=== PATIENT | male | born 1985 | race Two or more races ===

== ENCOUNTER 2018-04-14 18:01 | Emergency (ER) | payer SELFPAY ==
[~2018-04-14] VITALS: Ht 180.3 cm; Wt 77.1 kg
[2018-04-14] MEDS ORDERED: LORAZEPAM 1 MG TABLET PO ONE (18:30)
[2018-04-14] MEDS ORDERED: LORAZEPAM 1 MG TABLET ONE (18:49)
--- NOTE | 2018-04-14 18:51 | NUR ---
MEDICATIONS GIVEN PER MD ORDER
[2018-04-14 20:10] VITALS: BP 147/95
== END 2018-04-14 20:10 | disposition home or self-care (01) ==
LOC: ER 18:05
DX: F41.1 Generalized anxiety disorder (principal); Z88.8 Allergy status to other drugs, medicaments and biological substances; F17.210 Nicotine dependence, cigarettes, uncomplicated
CPT/HCPCS: A4606; Z7610

== ENCOUNTER 2018-05-06 01:12 | Emergency (ER) | payer SELFPAY ==
[~2018-05-06] VITALS: Ht 180.3 cm; Wt 79.4 kg
[2018-05-06 01:13] VITALS: BP 144/88
[2018-05-06] MEDS ORDERED: LORAZEPAM INJ 2 MG/ML VIAL IM ONE (02:00)
[2018-05-06] MEDS ORDERED: LORAZEPAM INJ 2 MG/ML VIAL ONE (02:08)
== END 2018-05-06 02:37 | disposition home or self-care (01) ==
LOC: ER 01:12
DX: F41.8 Other specified anxiety disorders (principal); F41.0 Panic disorder [episodic paroxysmal anxiety]; Z88.6 Allergy status to analgesic agent; Z98.890 Other specified postprocedural states
CPT/HCPCS: 96372; 99284; A4606; J2060; Z7610

== ENCOUNTER 2018-06-23 02:37 | Emergency (ER) | payer SELFPAY ==
[~2018-06-23] VITALS: Ht 180.3 cm; Wt 74.8 kg
--- NOTE | 2018-06-23 02:40 | NUR ---
PT AMBULATORY TO ER BED 11. BIB SELF C/O CP X 1 HOUR AGO, DENIES SOB. CP RESOLVED AT THIS TIME. PT STATES SEEN HERE IN ER FOR SAME X 2 OVER LAST 2 MONTHS. 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 VSS/RESP EVEN UNLABORED/NAD NOTED/SKIN WARM AND DRY/DENIES N-V-D/AFEBRILE/AOX4. AWAITING MD FRENCH.
--- NOTE | 2018-06-23 02:50 | NUR ---
EMT AT BEDSIDE FOR EKG.
--- NOTE | 2018-06-23 02:55 | NUR ---
AT BEDSIDE FOR EVAL.
[2018-06-23 04:37] VITALS: BP 138/99
== END 2018-06-23 04:38 | disposition home or self-care (01) ==
LOC: ER 02:37
DX: R07.89 Other chest pain (principal); F41.0 Panic disorder [episodic paroxysmal anxiety]; Z98.890 Other specified postprocedural states; Z88.6 Allergy status to analgesic agent
CPT/HCPCS: 71046; 93005; 99284; A4606; Z7610

== ENCOUNTER 2019-01-17 14:59 | Emergency (ER) | payer SELFPAY ==
[~2019-01-17] VITALS: Ht 180.3 cm; Wt 77.1 kg
[2019-01-17] MEDS ORDERED: HYDROCODONE/APAP 5/325MG 1 EACH TABLET PO ONE (15:30)
[2019-01-17] MEDS ORDERED: HYDROCODONE/APAP 5/325MG 1 EACH TABLET ONE (15:41)
--- NOTE | 2019-01-17 15:43 | NUR ---
P T REC'D TO ER C/O PAIN SWELLING LEFT ANKLE 8/10 PAIN POS GIVEN AWAITING EVALUATION BY ER PROVIDER.
--- NOTE | 2019-01-17 15:44 | NUR ---
PT GIVEN NORCO 5/325 MG PO NOW PER MD ORDER
--- NOTE | 2019-01-17 16:18 | NUR ---
[facility] CALLED FOR STAT READ
--- NOTE | 2019-01-17 17:07 | NUR ---
CRUTCH DEMO BY PATIENT LEFT LEG BANDAGED PT. VERBALIZED UNDERSTANDING OF AFTERCARE INSTRUCTIONS.Patient discharged to home in stable condition. Written and verbal after care instructions given. Patient verbalizes understanding of instruction.
[2019-01-17 17:09] VITALS: BP 138/75
== END 2019-01-17 17:10 | disposition home or self-care (01) ==
LOC: ER 15:02
DX: S82.832A Other fracture of upper and lower end of left fibula, initial encounter for closed fracture (principal); F41.9 Anxiety disorder, unspecified; Z98.890 Other specified postprocedural states; Z88.6 Allergy status to analgesic agent; W23.0XXA Caught, crushed, jammed, or pinched between moving objects, initial encounter; Y93.89 Activity, other specified; Y92.89 Other specified places as the place of occurrence of the external cause; Y99.8 Other external cause status
CPT/HCPCS: 29515; 73610; 99283; A4606

== ENCOUNTER 2025-07-26 02:37 | Emergency (ER) | payer SELFPAY ==
[~2025-07-26] VITALS: Ht 177.8 cm; Wt 77.1 kg
[2025-07-26] MEDS ORDERED: ACETAMINOPHEN 325 MG TABLET ONE (03:44)
[2025-07-26 03:48] VITALS: BP 135/75; TEMP 98; O2SAT 97
[2025-07-26] MEDS: ACETAMINOPHEN 325 MG TABLET PO ONE (03:49)
== END 2025-07-26 03:48 | disposition home or self-care (01) ==
LOC: ER 02:40
DX: S10.93XA Contusion of unspecified part of neck, initial encounter (principal); R07.0 Pain in throat; R13.10 Dysphagia, unspecified; F41.9 Anxiety disorder, unspecified; Z60.2 Problems related to living alone; Z88.6 Allergy status to analgesic agent; X58.XXXA Exposure to other specified factors, initial encounter; Y93.89 Activity, other specified; Y92.89 Other specified places as the place of occurrence of the external cause; Y99.8 Other external cause status
CPT/HCPCS: 70490-TC